=== PATIENT | female | born 1985 | race Caucasian/White ===

== ENCOUNTER 2021-07-07 02:34 | Emergency (ER) | payer BC ==
[~2021-07-07] VITALS: Ht 152.4 cm; Wt 52.2 kg
[2021-07-07] MEDS ORDERED: SODIUM CHLORIDE 0.9% 1000ML 1,000 ML IV STA (02:41)
[2021-07-07] MEDS ORDERED: MAGNESIUM SULF 1GRAM/DEXTROSE 100 ML IV STA (02:41)
[2021-07-07] MEDS ORDERED: ALBUTEROL/IPRATROPIUM 3 ML NEB NEB ONE (02:45)
[2021-07-07 02:51] VITALS: BP 107/64
[2021-07-07] MEDS ORDERED: MAGNESIUM SULF 1GRAM/DEXTROSE 100 ML IV ONE (02:52)
[2021-07-07] MEDS ORDERED: SODIUM CHLORIDE 0.9% 1000ML 1,000 ML ONE (02:55)
[2021-07-07] MEDS ORDERED: PREDNISONE50 MG PO (04:15)
[2021-07-07] MEDS ORDERED: VENTOLIN HFA18 GM INH (04:15)
== END 2021-07-07 04:24 | disposition home or self-care (01) ==
LOC: EDBD 02:34 → ER 02:39
DX: J45.901 Unspecified asthma with (acute) exacerbation (principal); R06.02 Shortness of breath
CPT/HCPCS: 71045; 93005; 94640; 94799; 99283; J3475; J7030